=== PATIENT | male | born 1970 | race American Indian/Alaskan Native ===

== ENCOUNTER 2017-04-29 00:38 | Emergency (ER) | payer SELFPAY ==
[2017-04-29 00:56] VITALS: TEMP 98.2
[2017-04-29 01:10] VITALS: BMI 40.7
[2017-04-29] MEDS ORDERED: Naproxen 550 mg Tab PO STA (01:26)
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
[2017-04-29 02:50] VITALS: BP 128/67; PULSE 82; RESP 17; O2SAT 99
--- NOTE | 2017-04-29 09:25 | RAD ---
PROCEDURE: Cervical Spine Radiographs. HISTORY: Pain. COMPARISON: None. FINDINGS: BONES: Alignment maintained. No fracture. Dens Intact. DISC SPACES: Normal. SOFT TISSUES: Normal. No prevertebral soft tissue swelling. OTHER FINDINGS: None. IMPRESSION: Normal cervical spine radiographs
--- NOTE | 2017-04-29 09:25 | RAD ---
PROCEDURE: Radiographs of the Lumbar Spine. HISTORY: pain COMPARISON: No prior. FINDINGS: BONES: Normal alignment. No listhesis. No fracture. DISC SPACES: Unremarkable. OTHER FINDINGS: None. IMPRESSION: Unremarkable radiographs of the lumbar spine.
== END 2017-04-29 02:49 | disposition home or self-care (01) ==
LOC: ED 00:38
DX: S16.1XXA Strain of muscle, fascia and tendon at neck level, initial encounter (principal); V49.9XXA Car occupant (driver) (passenger) injured in unspecified traffic accident, initial encounter; M54.5 Low back pain; I10 Essential (primary) hypertension